=== PATIENT | male | born 1975 | race Caucasian/White ===

== ENCOUNTER 2021-11-02 08:35 | Observation (INO) | payer BC ==
[~2021-11-02 08:35] MED LIST: ANTIVERT 25MG T25 MG PO; BUSPIRONE HCL5 MG PO
[2021-11-02 09:09] LABS: HEMOGLOBIN 16.7 gm/dl (14.0-17.5); RED BLOOD COUNT 5.12 M/UL (4.20-5.50); WHITE BLOOD COUNT 9.2 K/UL (4.5-11.0)
[2021-11-02 09:40] LABS: BUN/CREATININE RATIO 14 (0-10)
[2021-11-02] MEDS ORDERED: NITROSTAT0.4 MG SL (11:20)
[2021-11-02] MEDS ORDERED: ASPIRIN CHEWABL81 MG PO (11:20)
== END 2021-11-02 12:47 | disposition left against medical advice (07) ==
LOC: ER1 08:35 → CDU 09:59
PROVIDERS: Emergency Medicine; ADMIT Internal Medicine
DX: R07.9 Chest pain, unspecified (principal); R42 Dizziness and giddiness; Z20.822 Contact with and (suspected) exposure to COVID-19; E11.9 Type 2 diabetes mellitus without complications; E78.5 Hyperlipidemia, unspecified; Z82.49 Family history of ischemic heart disease and other diseases of the circulatory system
CPT/HCPCS: 70450; 71045; 80053; 82550; 82553; 84484; 85025; 93005; 99285; G0378; U0002